=== PATIENT | female | born 1955 | race Caucasian/White ===

== ENCOUNTER 2016-10-07 08:53 | Day surgery (SDC) | payer OTHER ==
[~2016-10-07] VITALS: Ht 167.6 cm; Wt 94.4 kg
[~2016-10-07 08:53] MED LIST: ADVIL,NUPRIN,M200 MG PO; AMBIEN5 MG PO; AMOX TR-K CLV1 EAC4 PO; ANASTROZOLE1 MG PO; AUGMENTIN875 MG PO; BENADRYL25 MG PO; CIPRO500 MG PO; CLARITIN,ALAVAR10 MG PO; COLACE100 MG PO; COMPAZINE10 MG PO; DOCUSATE SODIU100 MG PO; GABAPENTIN100 MG PO; LEVOTHYROXINE100 MCG PO; LIPITOR10 MG PO; NEURONTIN100 MG PO; NORCO 5/3251 TABLET PO; OXYCODONE HCL10 MG PO; PERCOCET 10/1 TABLET PO; PROBIOTIC1 EAC2 PO; SYNTHROID100 MCG PO; TYLENOL REGULA325 MG PO; TYLENOL WITH C1 EACH PO; VANCOCIN HCL125 MG PO; XALATAN2.5 ML BOTH EYES; ZOFRAN4 MG PO; ZUPLENZ4 MG PO
[2016-10-07 09:32] VITALS: BP 132/74
[2016-10-07 13:40] VITALS: BP 176/77
[2016-10-07 14:46] VITALS: BP 155/85
== END 2016-10-07 14:55 | disposition home or self-care (01) ==
LOC: SDC 08:53
PROC: 0UDB8ZX Extraction of Endometrium, Via Natural or Artificial Opening Endoscopic, Diagnostic (ICD-10-PCS; principal; 2016-10-07)
DX: N95.0 Postmenopausal bleeding (principal); E78.5 Hyperlipidemia, unspecified; E03.9 Hypothyroidism, unspecified; E66.9 Obesity, unspecified; Z68.33 Body mass index [BMI] 33.0-33.9, adult; R73.03 Prediabetes; Z83.3 Family history of diabetes mellitus; Z83.49 Family history of other endocrine, nutritional and metabolic diseases; Z80.41 Family history of malignant neoplasm of ovary; Z80.8 Family history of malignant neoplasm of other organs or systems; Z85.3 Personal history of malignant neoplasm of breast
CPT/HCPCS: 88305; J1100; J2405; J3010

== ENCOUNTER → 2016-11-15 | Outpatient (CLI) | payer OTHER ==
[~2016-11-15] VITALS: Ht 167.6 cm; Wt 95.3 kg
== END | disposition home or self-care (01) ==
LOC: AMB 09:30
PROC: 0DJD8ZZ Inspection of Lower Intestinal Tract, Via Natural or Artificial Opening Endoscopic (ICD-10-PCS; principal; 2016-11-15)
DX: Z12.11 Encounter for screening for malignant neoplasm of colon (principal); K57.90 Diverticulosis of intestine, part unspecified, without perforation or abscess without bleeding; K64.8 Other hemorrhoids; K92.1 Melena; K64.4 Residual hemorrhoidal skin tags; Z85.3 Personal history of malignant neoplasm of breast; Z90.12 Acquired absence of left breast and nipple; Z79.818 Long term (current) use of other agents affecting estrogen receptors and estrogen levels; Z79.82 Long term (current) use of aspirin; E78.5 Hyperlipidemia, unspecified; E03.9 Hypothyroidism, unspecified; E66.9 Obesity, unspecified; R73.03 Prediabetes; E04.1 Nontoxic single thyroid nodule; I10 Essential (primary) hypertension; Z86.19 Personal history of other infectious and parasitic diseases; Z87.891 Personal history of nicotine dependence; Z80.0 Family history of malignant neoplasm of digestive organs; Z80.49 Family history of malignant neoplasm of other genital organs; Z80.41 Family history of malignant neoplasm of ovary; Z83.49 Family history of other endocrine, nutritional and metabolic diseases; Z83.3 Family history of diabetes mellitus
CPT/HCPCS: J2250; J3010